=== PATIENT | male | born 1950 | race Caucasian/White ===

== ENCOUNTER → 2025-04-18 09:52 | Outpatient (REF) | payer MEDICARE, OTHER, SELFPAY | LOC: RCS 09:52 | PROVIDERS: ATTENDING PHYSICIAN Nurse Practitioner Family | DX: E78.2 Mixed hyperlipidemia (principal); F17.290 Nicotine dependence, other tobacco product, uncomplicated | CPT/HCPCS: 93017; 93350 ==